=== PATIENT | male | born 1960 | race Caucasian/White ===

== ENCOUNTER → 2017-05-21 18:08 | Outpatient (CLI) | payer MEDICARE ==
[2016-06-29 06:36] VITALS: BMI 22.0
[~2017-05-21 18:08] MED LIST: ASPIRIN EC81 M1 PO; ATRIPLA TABLET1 TAB PO; HYDROCODONE-APA1 TAB PO; MULTIPLE VITAMI1 TA1 PO; TRICOR145 MG PO; VALIUM5 MG PO; ZOLOFT50 MG PO
== END | disposition home or self-care (01) ==
LOC: D.LABREF 18:08
DX: Z13.9 Encounter for screening, unspecified (principal)

== ENCOUNTER 2018-04-08 10:20 | Day surgery (SDC) | payer MEDICARE ==
[~2018-04-08] VITALS: Ht 172.7 cm; Wt 68.2 kg
--- NOTE | ~2018-04-08 | OP ---
PATIENT NAME: DARRELL PANDYA MEDICAL RECORD: [id number] :64 LOCATION:[facility] ADMISSION DATE: SURGEON: JULIO SUTTON DO DATE OF OPERATION: 04/08/2018 PROCEDURE: Colonoscopy with polypectomy. INDICATIONS FOR PROCEDURE: Screening for colorectal cancer and a family history of malignant neoplasm of the gastrointestinal tract. SCOPE: Olympus video pediatric colonoscope. MEDICATIONS: Propofol 350 mg IV per anesthesia. WITHDRAWAL TIME: 14 minutes. ESTIMATED BLOOD LOSS: Minimal. COMPLICATIONS: None. FINDINGS: Informed consent was given. The patient was made comfortable with the above medication. After reaching an adequate level of sedation by slow IV push, the patient was placed on his left side. A digital rectal examination was performed and was normal. The endoscope was then advanced under direct visualization through the rectum to the cecum, confirmed by the appendiceal orifice and ileocecal valve. The endoscope was slowly withdrawn and mucosa was carefully examined. Prep quality was excellent. There was a single polyp located in the ascending colon, which was benign appearing and sessile. It measured approximately 5-6 mm in diameter. It was removed using hot snare in 1 piece and completely retrieved. There was evidence of mild diverticulosis involving the sigmoid colon. Retroflexion was performed in the rectum with a normal appearing rectal wall. The endoscope was then withdrawn from the patient. The patient tolerated the procedure well and there were no complications. IMPRESSION: 1. Single polyp located in the ascending colon as described above. 2. Mild diverticulosis of the sigmoid colon. 3. Otherwise, normal colonoscopy to cecum. PLAN AND RECOMMENDATIONS: 1. Discharge home when recovery parameters are met. 2. Follow up biopsy specimen results. 3. High fiber diet. 4. Continue current medications. 5. Recall colonoscopy in 3-5 years for surveillance of a personal history of polyps. TRANSINT:[id number] Voice Confirmation ID: [id number] DOCUMENT ID: [id number] OPERATIVE REPORT [id number] DARRELL PANDYA JULIO SUTTON DO at 1616 CC: [id number] DICTATION DATE: 04/08/18 1314 ENGINE HEAD REPAIRER: 04/08/18 1330 [facility] 04/08/18 [place] [address]
[2018-04-08 11:34] VITALS: BP 104/78; Ht 172.7 cm; Wt 68.2 kg
== END 2018-04-08 14:20 | disposition home or self-care (01) ==
LOC: D.OPS 10:20
DX: Z12.11 Encounter for screening for malignant neoplasm of colon (principal); D12.2 Benign neoplasm of ascending colon; K57.30 Diverticulosis of large intestine without perforation or abscess without bleeding; Z80.0 Family history of malignant neoplasm of digestive organs; Z01.812 Encounter for preprocedural laboratory examination

== ENCOUNTER → 2018-11-07 10:28 | Outpatient (CLI) | payer MEDICARE ==
[2018-04-08 11:34] VITALS: BMI 22.8
== END | disposition home or self-care (01) ==
LOC: D.US 10:28
PROVIDERS: ATTEND Internal Medicine Nephrology
DX: D64.9 Anemia, unspecified (principal); N40.0 Benign prostatic hyperplasia without lower urinary tract symptoms; Z68.21 Body mass index [BMI] 21.0-21.9, adult; I12.9 Hypertensive chronic kidney disease with stage 1 through stage 4 chronic kidney disease, or unspecified chronic kidney disease; N18.3 Chronic kidney disease, stage 3 (moderate); N25.81 Secondary hyperparathyroidism of renal origin

== ENCOUNTER 2019-08-19 18:47 | Inpatient (IN) | payer MEDICARE ==
[~2019-08-19] VITALS: Ht 172.7 cm; Wt 65.8 kg
[2019-08-19] MEDS ORDERED: BIKTARVY 50-201 EACH PO (18:53)
[2019-08-19 19:33] LABS: BASOPHILS 0.1 % (0-2); EOSINOPHILS 2.9 % (0-7); HEMATOCRIT 43.7 % (42.0-54.0); HEMOGLOBIN 14.6 g/dL (13.5-17.5); IMMATURE GRANULOCYTES 0.1 % (0-5); LYMPHOCYTES 6.7 % (15-50); MCH 29.9 pg (26.0-34.0); MCHC 33.4 g/dL (31.0-37.0); MCV 89.5 fL (80.0-100.0); MEAN PLATELET VOLUME 9.2 fL (7.4-10.4); MONOCYTES 5.3 % (2-11); NEUTROPHILS 84.9 % (40-80); PLATELET COUNT 321 10x3/uL (130-400); RBC 4.88 10x6/uL (4.20-6.10); RDW 14.7 % (11.5-14.5); WBC 15.6 10x3/uL (4.8-10.8)
[2019-08-19 19:41] LABS: CALC OSMOLALITY 287 mosm/kg (275-300); CALCIUM 9.3 mg/dL (8.5-10.1); CARBON DIOXIDE 27.3 mmol/L (21.0-32.0); CHLORIDE - SERUM 105 mmol/L (98-107); CREATININE - SERUM 1.7 mg/dL (0.6-1.3); GLUCOSE 110 mg/dL (74-106); POTASSIUM - SERUM 4.2 mmol/L (3.5-5.1); SODIUM 143 mmol/L (136-145); UREA NITROGEN 18 mg/dL (7-18); eGFR NON AFRICAN AMERICAN 44 mL/min (90-120)
[2019-08-19 19:51] LABS: INR 0.98 (0.85-1.17); PROTIME 12.5 SECONDS (11.6-15.0)
[2019-08-19 20:06] LABS: ALBUMIN 4.1 g/dL (3.4-5.0); ALKALINE PHOSPHATASE 49 U/L (46-116); ALT (SGPT) 25 U/L (10-68); BILIRUBIN - TOTAL 0.48 mg/dL (0.2-1.3); CKMB 2.3 U/L (0.0-3.6); CREATINE KINASE 196 UL (21-232); PRO BNP 316 pg/mL (0-125); PROTEIN - SERUM 7.2 g/dL (6.4-8.2); TROPONIN-I < 0.017 ng/mL (0.000-0.060)
[2019-08-19 22:24] VITALS: BP 144/86; BMI 22.0
--- NOTE | 2019-08-19 22:30 | NUR ---
RECEIVED PT FROM ER. A/O WITH NO SIGNS OF ACUTE DISTRESS. IV TO THE RT FORARM WITH NO REDNESS OR SWELLING NOTED. DENIES NEEDS AT THIS TIME. CONTINUE PLAN OF CARE.
[2019-08-20 01:21] VITALS: BP 122/85
[2019-08-20 02:03] LABS: APPEARANCE CLEAR (CLEAR); BILIRUBIN NEGATIVE (NEGATIVE); COLOR STRAW (YELLOW); GLUCOSE NEGATIVE (NEGATIVE); KETONE NEGATIVE (NEGATIVE); NITRITE NEGATIVE (NEGATIVE); PROTEIN NEGATIVE (NEGATIVE); UROBILINOGEN NORMAL (NORMAL)
[2019-08-20 05:06] VITALS: BP 189/91
[2019-08-20 05:29] LABS: BASOPHILS 0.1 % (0-2); EOSINOPHILS 0.2 % (0-7); HEMATOCRIT 44.6 % (42.0-54.0); HEMOGLOBIN 14.6 g/dL (13.5-17.5); IMMATURE GRANULOCYTES 0.2 % (0-5); LYMPHOCYTES 4.2 % (15-50); MCH 29.4 pg (26.0-34.0); MCHC 32.7 g/dL (31.0-37.0); MCV 89.9 fL (80.0-100.0); MEAN PLATELET VOLUME 9.9 fL (7.4-10.4); MONOCYTES 1.3 % (2-11); PLATELET COUNT 335 10x3/uL (130-400); RBC 4.96 10x6/uL (4.20-6.10); RDW 14.9 % (11.5-14.5); WBC 13.2 10x3/uL (4.8-10.8)
[2019-08-20 06:02] LABS: ANION GAP 16.5 mmol/L (8-16); CALCIUM 9.2 mg/dL (8.5-10.1); CARBON DIOXIDE 24.1 mmol/L (21.0-32.0); CREATININE - SERUM 1.8 mg/dL (0.6-1.3); MAGNESIUM - SERUM 1.8 mg/dL (1.8-2.4); PHOSPHOROUS 2.3 mg/dL (2.5-4.9); POTASSIUM - SERUM 3.6 mmol/L (3.5-5.1)
[2019-08-20 06:37] LABS: APTT 27.4 SECONDS (22.8-39.4); D-DIMER-QUANTITATIVE 0.34 ug/mLFEU (0.20-0.54); INR 0.96 (0.85-1.17); PROTIME 12.7 SECONDS (11.6-15.0)
[2019-08-20 08:20] VITALS: BP 104/78
--- NOTE | 2019-08-20 08:26 | NUR ---
RESTING IN BED, NO DISTRESS NOTED NEEDS SPUTUM COLLECTED, CONT TO MONITOR
[2019-08-20 13:41] VITALS: BP 147/61
[2019-08-20 13:48] VITALS: Ht 172.7 cm; Wt 65.8 kg
[2019-08-20 17:14] VITALS: BP 145/71
--- NOTE | 2019-08-20 19:27 | NUR ---
NO DISTRESS NOTED TODAY, ABT INFUSING
[2019-08-20 19:30] VITALS: BP 110/78
[2019-08-21 00:30] VITALS: BP 108/72
--- NOTE | 2019-08-21 03:06 | NUR ---
I have reviewed this patient and I concur with the Shift Assessment completed by the Licensed Practical Nurse today this shift.
[2019-08-21 04:49] LABS: BASOPHILS 0.1 % (0-2); EOSINOPHILS 0.9 % (0-7); HEMATOCRIT 42.9 % (42.0-54.0); HEMOGLOBIN 14.1 g/dL (13.5-17.5); IMMATURE GRANULOCYTES 0.4 % (0-5); LYMPHOCYTES 10.4 % (15-50); MCH 29.7 pg (26.0-34.0); MCHC 32.9 g/dL (31.0-37.0); MCV 90.3 fL (80.0-100.0); MEAN PLATELET VOLUME 9.5 fL (7.4-10.4); MONOCYTES 6.7 % (2-11); NEUTROPHILS 81.5 % (40-80); PLATELET COUNT 339 10x3/uL (130-400); RBC 4.75 10x6/uL (4.20-6.10)
[2019-08-21 05:00] VITALS: BP 110/67
[2019-08-21 05:17] LABS: ANION GAP 12.5 mmol/L (8-16); CALCIUM 8.9 mg/dL (8.5-10.1); CARBON DIOXIDE 27.4 mmol/L (21.0-32.0); CREATININE - SERUM 1.8 mg/dL (0.6-1.3); MAGNESIUM - SERUM 2.2 mg/dL (1.8-2.4); POTASSIUM - SERUM 3.9 mmol/L (3.5-5.1)
[2019-08-21 05:20] LABS: PHOSPHOROUS 3.2 mg/dL (2.5-4.9)
--- NOTE | 2019-08-21 07:10 | NUR ---
PT RESTING IN BED. NO SIGNS OF DISTRESS. IV TO RIGHT WRIST PATENT NO REDNESS OR TENDERNESS. DENIES ANY FURTHER NEED AT THIS TIME. CALL LIGHT IN REACH. BED LOW POSITION. NO FAMILY AT BEDSIDE AT THIS TIME.
[2019-08-21 09:21] VITALS: BP 126/80
--- NOTE | 2019-08-21 12:31 | NUR ---
I have reviewed this patient and I concur with the Shift Assessment completed by the Licensed Practical Nurse today this shift.
[2019-08-21 12:54] VITALS: BP 111/73
--- NOTE | 2019-08-21 15:52 | MORECARE ---
CASE MANAGEMENT DISCHARGE SUMMARY PATIENT: DARRELL PANDYA UNIT: [id number] ADM DATE: 08/19/19 AGE: 58 : 64 SEX: M ROOM/BED: D.2229 AUTHOR: MARY TELLES PHYSICIAN: REFERRING PHYSICIAN: JAMSHID GARRISON MD DATE OF SERVICE: 08/21/19 Discharge Plan Patient Name: DARRELL PANDYA [facility] [facility] 1960 Planned Disposition: Home Anticipated Discharge Date: Discharge Date: Expected LOS: Initial Reviewer: [email or web address] Initial Review Date: 08/21/2019 Generated: 08/21/19 4:51 pm Patient Name: DARRELL PANDYA Page [phone] at 1552 All edits/amendments must be made on the electronic document DICTATION DATE: 08/21/191550 CEMENT CUTTER: JEAN 08/21/19 155 RPT#: [id number] DC DATE: STATUS: ADM IN [facility] [address] [place] [address] END OF REPORT
[2019-08-21 17:28] VITALS: BP 115/83
[2019-08-21 19:30] VITALS: BP 134/66
[2019-08-22 00:30] VITALS: BP 112/68
--- NOTE | 2019-08-22 00:30 | NUR ---
ASSESSED AT THE BEGINNING OF THE SHIFT. PT IS ALERT AND ORIENTEDD. ABLE TO VERBALIZE NEEDS. HE IS WEARING HIS SCDS. SOMEONE BROUGHT BIKTARVY. HIS HOME MED AND IT HAS BEEN TAKEN TO THE PHARM, TO PUT A STICKER OF HIS NAME LATER HE REQUESTED PAIN MEDS BEFORE HE COULD SLEEP. AT THIS TIME HE IS ASLEEP WITH NO DISTRESS
[2019-08-22 05:19] VITALS: BP 118/72
[2019-08-22 06:37] LABS: BASOPHILS 0.1 % (0-2); EOSINOPHILS 0.1 % (0-7); HEMATOCRIT 42.1 % (42.0-54.0); HEMOGLOBIN 13.8 g/dL (13.5-17.5); IMMATURE GRANULOCYTES 0.3 % (0-5); LYMPHOCYTES 5.4 % (15-50); MCH 29.2 pg (26.0-34.0); MCHC 32.8 g/dL (31.0-37.0); MONOCYTES 4.3 % (2-11); NEUTROPHILS 89.8 % (40-80); PLATELET COUNT 294 10x3/uL (130-400); RBC 4.73 10x6/uL (4.20-6.10); RDW 14.9 % (11.5-14.5); WBC 19.2 10x3/uL (4.8-10.8)
[2019-08-22 06:45] LABS: ANION GAP 13.5 mmol/L (8-16); CALCIUM 8.8 mg/dL (8.5-10.1); CARBON DIOXIDE 25.4 mmol/L (21.0-32.0); CREATININE - SERUM 1.6 mg/dL (0.6-1.3); MAGNESIUM - SERUM 2.1 mg/dL (1.8-2.4); PHOSPHOROUS 3.9 mg/dL (2.5-4.9); POTASSIUM - SERUM 3.9 mmol/L (3.5-5.1)
--- NOTE | 2019-08-22 07:37 | NUR ---
PT IS RESTING IN BED WITH EYES OPEN. RESPIRATIONS ARE EVEN AND UNLABORED. PT DENIES PRESENCE OF DYSPNEA/SOB. EXPIRATORY WHEEZE HEARD RML RLL. INCENTIVE SPIROMETER GIVEN TO PT. PT DEMONSTRATES PROPER TECHNIQUE AND UNDERSTANDING. PT DENIES FURTHER QUESTIONS. SCDS ARE ON. PT DENIES PRESENCEO F PAIN/N/V PT REPORTS LAST BM ON 08/21/19 DESCRIBED "NORMAL" PER PT. BED IS IN THE LOWEST POSITION. CALL LIGHT AND BEDSIDE TABLE ARE WITHIN REACH. SIDE RAILS X 2. PT DENIES FURTHER NEEDS. WILL CONT TO MONITOR.
--- NOTE | 2019-08-22 08:03 | MORECARE ---
CASE MANAGEMENT DISCHARGE SUMMARY PATIENT: DARRELL PANDYA JABARI UNIT: [id number] ADM DATE: 08/19/19 AGE: 58 : 64 SEX: M ROOM/BED: D.2229 AUTHOR: MARY TELLES PHYSICIAN: REFERRING PHYSICIAN: JAMSHID GARRISON MD DATE OF SERVICE: 08/22/19 Discharge Plan Patient Name: DARRELL PANDYA [facility] [facility] 1960 Planned Disposition: Home Anticipated Discharge Date: Discharge Date: Expected LOS: Initial Reviewer: [email or web address] Initial Review Date: 08/21/2019 Generated: 08/22/19 9:03 am DCPIA - Discharge Planning Initial Assessment Updated by [email or web address]: Cristin Fish on 08/22/19 7:57 am * Is the patient Alert and Oriented? Yes * How many steps to enter\exit or inside your home? 1/0 * PCP Dr. Rain * Pharmacy [facility] * Preadmission Environment Home with Family * ADLs Independent * Equipment None * List name and contact numbers for known caregivers / representatives who currently or will assist patient after discharge: Thanh Hinkle - [phone] * Verbal permission to speak to the caregivers and representatives has been obtained from the patient. Yes * Community resources currently utilized None * Additional services required to return to the preadmission environment? No * Can the patient safely return to the preadmission environment? Yes * Has this patient been hospitalized within the prior 30 days at any hospital? No Last DP export: 08/21/19 2:52 Patient Name: DARRELL PANDYA Page [phone] at 0803 All edits/amendments must be made on the electronic document DICTATION DATE: 08/22/19 08 METAL MILLING MACHINE OPERATOR: JEAN 08/22/19802 RPT#: [id number] DC DATE: STATUS: ADM IN [facility] [address] [place] [address] END OF REPORT
--- NOTE | 2019-08-22 08:18 | MORECARE ---
CASE MANAGEMENT DISCHARGE SUMMARY PATIENT: DARRELL PANDYA UNIT: [id number] ADM DATE: 08/19/19 AGE: 58 : 64 SEX: M ROOM/BED: D.2229 AUTHOR: KOKI,DOC PHYSICIAN: REFERRING PHYSICIAN: JAMSHID GARRISON MD DATE OF SERVICE: 08/22/19 Discharge Plan Patient Name: DARRELL PANDYA Facility: [facility]:[place] : 1960 Planned Disposition: Home Anticipated Discharge Date: Discharge Date: Expected LOS: Initial Reviewer: [email or web address] Initial Review Date: 08/21/2019 Generated: 08/22/19 9:18 am Comments DCP- Discharge Planning Updated by [email or web address]: Cristin Fish on 08/22/19 7:[address] Patient Name: DARRELL PANDYA Admission Status: ER Accout number: [id number] Admission Date: 08-19-2019 : 1960 Admission Diagnosis: Attending: JAMSHID ROCA Current LOS: 3 Anticipated DC Date: Planned Disposition: Home Primary Insurance: [facility] MEDICARE SOLUTIONS Discharge Planning Comments: CM met with patient to complete initial dc planning assessment. CM educated patient on the CM role and verbal consent given by patient to complete assessment. Patient lives at home with Thanh Hinkle. At discharge patient plans to return and feels this is a safe discharge. CM discussed availability of home health, rehab services, and medical equipment. Patient states he believes Dr. Osorio will order a nebulizer for him. He lives at [facility] for [facility]. CM will continue to follow and will assist as needed with dc plans/needs. Inseminator: Cristin Fish DCPIA - Discharge Planning Initial Assessment Updated by [email or web address]: Cristin Fish on 08/22/19 7:57 am * Is the patient Alert and Oriented? Yes * How many steps to enter\exit or inside your home? 1/0 * PCP Dr. Rain * Pharmacy [facility] * Preadmission Environment Home with Family * ADLs Independent * Equipment None * List name and contact numbers for known caregivers / representatives who currently or will assist patient after discharge: Thanh Hinkle - [phone] * Verbal permission to speak to the caregivers and representatives has been obtained from the patient. Yes * Community resources currently utilized None * Additional services required to return to the preadmission environment? No * Can the patient safely return to the preadmission environment? Yes * Has this patient been hospitalized within the prior 30 days at any hospital? No Last DP export: 08/22/19 7:03 Patient Name: DARRELL PANDYA Page [phone] at 0818 All edits/amendments must be made on the electronic document DICTATION DATE: 08/22/19817 MANAGER MASSAGE DEPARTMENT: JEAN 08/22/19817 RPT#: [id number] DC DATE: STATUS: ADM IN [facility] [address] [place] [address] END OF REPORT
[2019-08-22 08:50] VITALS: BP 115/88
[2019-08-22 12:28] VITALS: BP 111/69
--- NOTE | 2019-08-22 13:27 | NUR ---
NUTRITION F/U PT TOLERATING REG DIET. 100% INTAKE BREAKFAST THIS AM. WILL CONTINUE TO PROVIDE DIET, HONOR FOOD PREFERENCES. RD FOLLOWING
--- NOTE | 2019-08-22 13:31 | NUR ---
PT REPORTS PAIN TO LEFT "URINARY TRACT" AND PT DESCRIBES PAIN A SHARP THROBBING INTERMITTENT. PT DENIES DYSURIA DURING VOIDING AND STAES THAT PAIN COMES AND GOES WITH MOVEMENT. PT DENIES NEEDS. BED IS IN THE LOWEST POSITION. CALL LIGHT AND BEDSIDE TABLE ARE WITHINR EACH. SIDE RAILS X 2. WILL CONT TO MONITOR.
--- NOTE | 2019-08-22 16:15 | MORECARE ---
CASE MANAGEMENT DISCHARGE SUMMARY PATIENT: DARRELL PANDYA UNIT: [id number] ADM DATE: 08/19/19 AGE: 58 : 64 SEX: M ROOM/BED: D.2229 AUTHOR: KOKI,DOC PHYSICIAN: REFERRING PHYSICIAN: JAMSHID GARRISON MD DATE OF SERVICE: 08/22/19 Discharge Plan Patient Name: DARRELL PANDYA Facility: [facility]:[place] : 1960 Planned Disposition: Home Anticipated Discharge Date: Discharge Date: Expected LOS: Initial Reviewer: [email or web address] Initial Review Date: 08/21/2019 Generated: 08/22/19 5:14 pm Comments DCP- Discharge Planning Updated by [email or web address]: Cristin Fish on 08/22/19 7:[address] Patient Name: DARRELL PANDYA Admission Status: ER Accout number: [id number] Admission Date: 08-19-2019 : 1960 Admission Diagnosis: Attending: JAMSHID ROCA Current LOS: 3 Anticipated DC Date: Planned Disposition: Home Primary Insurance: [facility] MEDICARE SOLUTIONS Discharge Planning Comments: CM met with patient to complete initial dc planning assessment. CM educated patient on the CM role and verbal consent given by patient to complete assessment. Patient lives at home with Thanh Hinkle. At discharge patient plans to return and feels this is a safe discharge. CM discussed availability of home health, rehab services, and medical equipment. Patient states he believes Dr. Osorio will order a nebulizer for him. He lives at [facility] for [facility]. CM will continue to follow and will assist as needed with dc plans/needs. Director Of Optimization: Cristin Fish DCPIA - Discharge Planning Initial Assessment Updated by [email or web address]: Cristin Fish on 08/22/19 7:57 am * Is the patient Alert and Oriented? Yes * How many steps to enter\exit or inside your home? 1/0 * PCP Dr. Rain * Pharmacy [facility] * Preadmission Environment Home with Family * ADLs Independent * Equipment None * List name and contact numbers for known caregivers / representatives who currently or will assist patient after discharge: Thanh Hinkle - [phone] * Verbal permission to speak to the caregivers and representatives has been obtained from the patient. Yes * Community resources currently utilized None * Additional services required to return to the preadmission environment? No * Can the patient safely return to the preadmission environment? Yes * Has this patient been hospitalized within the prior 30 days at any hospital? No External Providers External Provider: [facility] Next Contact Date: Service Request Date: Service Type: Resolution: Reviewer: Comments: Coverage Notice Reviewer: [email or web address] Donavan Fish Notice Issued Date-Time: 08/22/2019 8:18 Notice Type: Patient Choice Letter Notice Delivered To: Patient Relationship to Patient: Self Solar Energy Systems Designer Name: Delivery Method: HAND - Hand Delivered Lourdes Days: Prior Verbal Notification: Recipient Understood Notice: Yes Recipient Signature: Yes Med Rec Note Co-signed by Attending: Coverage Notice Comment: [facility] DP export: 08/22/19 7:18 Patient Name: DARRELL PNADYA Page [phone] at 1615 All edits/amendments must be made on the electronic document DICTATION DATE: 08/22/19 1615 MAT WORKER: JEAN 08/22/19 1615 RPT#: [id number] DC DATE: STATUS: ADM IN [facility] [address] [place] [address] END OF REPORT
--- NOTE | 2019-08-22 16:34 | MORECARE ---
CASE MANAGEMENT DISCHARGE SUMMARY PATIENT: DARRELL PANDYA UNIT: [id number] ADM DATE: 08/19/19 AGE: 58 : 64 SEX: M ROOM/BED: D.2229 AUTHOR: KOKI,DOC PHYSICIAN: REFERRING PHYSICIAN: JAMSHID GARRISON MD DATE OF SERVICE: 08/22/19 Discharge Plan Patient Name: DARRELL PANDYA Facility: [facility]:[place] : 1960 Planned Disposition: Home Anticipated Discharge Date: Discharge Date: Expected LOS: Initial Reviewer: [id number] Initial Review Date: 08/21/2019 Generated: 08/22/19 5:34 pm Comments DCP- Discharge Planning Updated by [email or web address]: Cristin Fish on 08/22/19 3:[address] OSORIO STATES PATIENT COULD POSSIBLY GO HOME THIS WEEKEND. HE WILL NEED A NEBULIZER WITH DUONEB 4 TIMES A DAY. I CALLED [facility] AND ORDER AND CLINICAL FAXED, SPOKE WITH DILIA. CM WILL CONTINUE TO FOLLOW AND ASSIST WITH DISCHARGE PLANNING/NEEDS. DCP- Discharge Planning Updated by [email or web address]: Cristin Fish on 08/22/19 7:[address] Patient Name: DARRELL PANDYA Admission Status: ER Accout number: [id number] Admission Date: 08-19-2019 : 1960 Admission Diagnosis: Attending: JAMSHID ROCA Current LOS: 3 Anticipated DC Date: Planned Disposition: Home Primary Insurance: [facility] MEDICARE SOLUTIONS Discharge Planning Comments: CM met with patient to complete initial dc planning assessment. CM educated patient on the CM role and verbal consent given by patient to complete assessment. Patient lives at home with Thanh Hinkle. At discharge patient plans to return and feels this is a safe discharge. CM discussed availability of home health, rehab services, and medical equipment. Patient states he believes Dr. Osorio will order a nebulizer for him. He lives at [facility] for [facility]. CM will continue to follow and will assist as needed with dc plans/needs. Chemical Compounder: Cristin Fish DCPIA - Discharge Planning Initial Assessment Updated by [email or web address]: Cristin Fish on 08/22/19 7:57 am * Is the patient Alert and Oriented? Yes * How many steps to enter\exit or inside your home? 1/0 * PCP Dr. Rain * Pharmacy [facility] 7N * Preadmission Environment Home with Family * ADLs Independent * Equipment None * List name and contact numbers for known caregivers / representatives who currently or will assist patient after discharge: Thanh Hinkle - [phone] * Verbal permission to speak to the caregivers and representatives has been obtained from the patient. Yes * Community resources currently utilized None * Additional services required to return to the preadmission environment? No * Can the patient safely return to the preadmission environment? Yes * Has this patient been hospitalized within the prior 30 days at any hospital? No Coverage Notice Reviewer: [id number] Donavan Fish Notice Issued Date-Time: 08/22/2019 8:18 Notice Type: Patient Choice Letter Notice Delivered To: Patient Relationship to Patient: Self Assistant Mechanic Name: Delivery Method: HAND - Hand Delivered Lourdes Days: Prior Verbal Notification: Recipient Understood Notice: Yes Recipient Signature: Yes Med Rec Note Co-signed by Attending: Coverage Notice Comment: [facility] for [facility] DP export: 08/22/19 3:15 Patient Name: DARRELL PANDYA Page [phone] at 1634 All edits/amendments must be made on the electronic document DICTATION DATE: 08/22/19 163 CARDIOTHORACIC SURGEON: JEAN 08/22/19 163 RPT#: [id number] DC DATE: STATUS: ADM IN [facility] [address] [place] [address] END OF REPORT
[2019-08-22 16:58] VITALS: BP 109/72
--- NOTE | 2019-08-22 17:06 | MORECARE ---
CASE MANAGEMENT DISCHARGE SUMMARY PATIENT: DARRELL PANDYA UNIT: [id number] ADM DATE: 08/19/19 AGE: 58 : 64 SEX: M ROOM/BED: D.2229 AUTHOR: KOKI,DOC PHYSICIAN: REFERRING PHYSICIAN: JAMSHID GARRISON MD DATE OF SERVICE: 08/22/19 Discharge Plan Patient Name: DARRELL PANDYA Facility: [facility]:[place] : 1960 Planned Disposition: Home Anticipated Discharge Date: Discharge Date: Expected LOS: Initial Reviewer: [email or web address] Initial Review Date: 08/21/2019 Generated: 08/22/19 6:06 pm Comments DCP- Discharge Planning Updated by [email or web address]: Cristin Fish on 08/22/19 4:[address] PATIENT TO CALL [facility] AT [phone] IF DISCHARGED OVER THE WEEKEND AND THEY WILL DELIVER HIS NEBULIZER AND DUO NEB TO HIS HOME. I GAVE THE PATIENT THAT WRITTEN INFORMATION WITH THE TELEPHONE NUMBER, HE VOICES UNDERSTANDING. DCP- Discharge Planning Updated by [email or web address]: Cristin Fish on 08/22/19 3:[address] OSORIO STATES PATIENT COULD POSSIBLY GO HOME THIS WEEKEND. HE WILL NEED A NEBULIZER WITH DUONEB 4 TIMES A DAY. I CALLED [facility] AND ORDER AND CLINICAL FAXED, SPOKE WITH DILIA. CM WILL CONTINUE TO FOLLOW AND ASSIST WITH DISCHARGE PLANNING/NEEDS. DCP- Discharge Planning Updated by [email or web address]: Cristin Polina on 08/22/19 7:[address] Patient Name: DARRELL PANDYA Admission Status: ER Accout number: [id number] Admission Date: 08-19-2019 : 1960 Admission Diagnosis: Attending: JAMSHID ROCA Current LOS: 3 Anticipated DC Date: Planned Disposition: Home Primary Insurance: [facility] MEDICARE SOLUTIONS Discharge Planning Comments: CM met with patient to complete initial dc planning assessment. CM educated patient on the CM role and verbal consent given by patient to complete assessment. Patient lives at home with Thanh Hinkle. At discharge patient plans to return and feels this is a safe discharge. CM discussed availability of home health, rehab services, and medical equipment. Patient states he believes Dr. Osorio will order a nebulizer for him. He lives at [facility] [employer]. CM will continue to follow and will assist as needed with dc plans/needs. Certification Technician: Cristin Fish DCPIA - Discharge Planning Initial Assessment Updated by [email or web address]: Cristin Fish on 08/22/19 7:57 am * Is the patient Alert and Oriented? Yes * How many steps to enter\exit or inside your home? 1/0 * PCP Dr. Rain [facility] * Preadmission Environment Home with Family * ADLs Independent * Equipment None * List name and contact numbers for known caregivers / representatives who currently or will assist patient after discharge: Thanh Manan - [phone] * Verbal permission to speak to the caregivers and representatives has been obtained from the patient. Yes * Community resources currently utilized None * Additional services required to return to the preadmission environment? No * Can the patient safely return to the preadmission environment? Yes * Has this patient been hospitalized within the prior 30 days at any hospital? No Coverage Notice Reviewer: [email or web address] - Cristin Fish Notice Issued Date-Time: 08/22/2019 8:18 Notice Type: Patient Choice Letter Notice Delivered To: Patient Relationship to Patient: Self Enterprise Manager Name: Delivery Method: HAND - Hand Delivered Lourdes Days: Prior Verbal Notification: Recipient Understood Notice: Yes Recipient Signature: Yes Med Rec Note Co-signed by Attending: Coverage Notice Comment: [facility] [employer] [facility] DP export: 08/22/19 3:35 Patient Name: DARRELL PANDYA Page [phone] at 1706 All edits/amendments must be made on the electronic document DICTATION DATE: 08/22/191705 STUDENT ASSISTANT: JEAN 08/22/191705 RPT#: [id number] DC DATE: STATUS: ADM IN [facility] [address] [place] [address] END OF REPORT
[2019-08-22 18:10] LABS: APPEARANCE CLEAR (CLEAR); BILIRUBIN NEGATIVE (NEGATIVE); COLOR YELLOW (YELLOW); GLUCOSE NEGATIVE (NEGATIVE); KETONE NEGATIVE (NEGATIVE); NITRITE NEGATIVE (NEGATIVE); PROTEIN NEGATIVE (NEGATIVE); UROBILINOGEN NORMAL (NORMAL)
[2019-08-22 19:30] VITALS: BP 116/74
[2019-08-23 00:30] VITALS: BP 110/68
[2019-08-23 04:57] VITALS: BP 108/71
[2019-08-23 06:55] LABS: CARBON DIOXIDE 27.6 mmol/L (21.0-32.0); CREATININE - SERUM 1.6 mg/dL (0.6-1.3); MAGNESIUM - SERUM 1.9 mg/dL (1.8-2.4); PHOSPHOROUS 4.1 mg/dL (2.5-4.9)
[2019-08-23 06:58] LABS: POTASSIUM - SERUM 4.6 mmol/L (3.5-5.1)
[2019-08-23 07:22] LABS: BASOPHILS 0.1 % (0-2); EOSINOPHILS 0 % (0-7); HEMATOCRIT 40.5 % (42.0-54.0); HEMOGLOBIN 13.1 g/dL (13.5-17.5); IMMATURE GRANULOCYTES 0.3 % (0-5); MCH 29.2 pg (26.0-34.0); MCHC 32.3 g/dL (31.0-37.0); MCV 90.4 fL (80.0-100.0); MEAN PLATELET VOLUME 9.8 fL (7.4-10.4); MONOCYTES 3.9 % (2-11); NEUTROPHILS 88.7 % (40-80); PLATELET COUNT 385 10x3/uL (130-400); RBC 4.48 10x6/uL (4.20-6.10); WBC 15.3 10x3/uL (4.8-10.8)
[2019-08-23 09:12] VITALS: BP 105/74
--- NOTE | 2019-08-23 09:19 | NUR ---
RESTING IN BED, NO DISTRESS NOTED, IV INFUSING, CONT TO MONITOR RESP STATUS
[2019-08-23 13:04] VITALS: BP 116/77
[2019-08-23 16:36] VITALS: BP 111/76
--- NOTE | 2019-08-23 19:30 | NUR ---
SITTING UP IN BED RECEIVING UD. ALERT AND ORIENTED X4. NO DISTRESS. RESP NONLABORED. NONPROD COUGH. SCDS IN USE. DENIES PAIN. AMBULATORY. SALINE LOCK NOTED TO LT FOREARM. CL IN REACH.
[2019-08-23 20:00] VITALS: BP 108/74
[2019-08-24] VITALS: BP 104/68
--- NOTE | 2019-08-24 00:31 | NUR ---
HAS RESTED WELL SO FAR. LYING IN BED WITH EYES CLOSED. NO DISTRESS. CL IN REACH.
[2019-08-24 04:00] VITALS: BP 104/72
[2019-08-24 05:47] LABS: BASOPHILS 0 % (0-2); EOSINOPHILS 0.2 % (0-7); HEMATOCRIT 42.7 % (42.0-54.0); HEMOGLOBIN 13.9 g/dL (13.5-17.5); IMMATURE GRANULOCYTES 0.9 % (0-5); LYMPHOCYTES 16.7 % (15-50); MCH 29.6 pg (26.0-34.0); MCHC 32.6 g/dL (31.0-37.0); MCV 90.9 fL (80.0-100.0); MEAN PLATELET VOLUME 9.7 fL (7.4-10.4); MONOCYTES 6.3 % (2-11); NEUTROPHILS 75.9 % (40-80); PLATELET COUNT 375 10x3/uL (130-400); RDW 14.9 % (11.5-14.5); WBC 12.4 10x3/uL (4.8-10.8)
[2019-08-24 06:35] LABS: ANION GAP 13.2 mmol/L (8-16); CALCIUM 9.2 mg/dL (8.5-10.1); CARBON DIOXIDE 27.7 mmol/L (21.0-32.0); CREATININE - SERUM 1.6 mg/dL (0.6-1.3); MAGNESIUM - SERUM 2.1 mg/dL (1.8-2.4); PHOSPHOROUS 3.8 mg/dL (2.5-4.9)
[2019-08-24 06:38] LABS: POTASSIUM - SERUM 3.9 mmol/L (3.5-5.1)
[2019-08-24 08:08] LABS: IMMUNOGLOBULIN E 54 IU/mL (6-495)
--- NOTE | 2019-08-24 08:30 | NUR ---
RESTING IN BED, NO DISTRESS NOTED, ANXIOUS TO DC HOME TODAY, SL IN PLACE
[2019-08-24 08:36] VITALS: BP 113/70
[2019-08-24] MEDS ORDERED: VIBRAMYCIN 100100 MG PO (11:12)
[2019-08-24] MEDS ORDERED: OMNICEF300 MG PO (11:12)
[2019-08-24] MEDS ORDERED: IPRAT-ALBUT 0.5-3 ML UPD (11:13)
[2019-08-24] MEDS ORDERED: MUCINEX DM ER1 EAC1 PO (11:13)
[2019-08-24] MEDS ORDERED: SINGULAIR10 MG PO (11:13)
[2019-08-24] MEDS ORDERED: TESSALON PERLE100 MG PO (11:13)
[2019-08-24] MEDS ORDERED: FLORAJEN3 CAPS460 MG PO (11:14)
[2019-08-24] MEDS ORDERED: PREDNISONE10 MG PO (11:15)
[2019-08-24] MEDS ORDERED: Nystatin Oral Susp [ PO (11:15)
[2019-08-24] MEDS ORDERED: Saline Mist NASAL SP NASAL (11:15)
[2019-08-24] MEDS ORDERED: SYMBICORT 16010.2 GM INH (11:15)
[2019-08-24 11:58] VITALS: BP 124/92
--- NOTE | 2019-08-24 11:58 | MORECARE ---
CASE MANAGEMENT DISCHARGE SUMMARY PATIENT: DARRELL PANDYA UNIT: [id number] ADM DATE: 08/19/19 AGE: 58 : 64 SEX: M ROOM/BED: D.2229 AUTHOR: KOKI,DOC PHYSICIAN: REFERRING PHYSICIAN: JAMSHID GARRISON MD DATE OF SERVICE: 08/24/19 Discharge Plan Patient Name: DARRELL PANDYA Facility: [facility]:[place] : 1960 Planned Disposition: Home Anticipated Discharge Date: Discharge Date: Expected LOS: Initial Reviewer: [id number] Initial Review Date: 08/21/2019 Generated: 08/24/19 12:57 pm Comments DCP- Discharge Planning Updated by [id number]: Francoise Jones on 08/24/19 10:[address] Patient Name: DARRELL PANDYA Encounter No: [id number] : 1960 Primary Insurance: [facility] [employer] Anticipated DC Date: Planned Disposition: Home External Planned Provider: : DCP follow-up note: Patient and family in agreement with discharge plan. No changes to plan. [employer] HAS ALREADY DELIVERED THE PATIENT'S NEB. IMM WAS SIGNED AND COPY GIVEN. Case management will follow and assist as needed. Francoise Jones DCP- Discharge Planning Updated by [email or web address]: Cristin Fish on 08/22/19 4:[address] PATIENT TO CALL [facility] AT [phone] IF DISCHARGED OVER THE WEEKEND AND THEY WILL DELIVER HIS NEBULIZER AND DUO NEB TO HIS HOME. I GAVE THE PATIENT THAT WRITTEN INFORMATION WITH THE TELEPHONE NUMBER, HE VOICES UNDERSTANDING. DCP- Discharge Planning Updated by [email or web address]: Cristin Fish on 08/22/19 3:[address] OSORIO STATES PATIENT COULD POSSIBLY GO HOME THIS WEEKEND. HE WILL NEED A NEBULIZER WITH DUONEB 4 TIMES A DAY. I CALLED [facility] AND ORDER AND CLINICAL FAXED, SPOKE WITH DILIA. CM WILL CONTINUE TO FOLLOW AND ASSIST WITH DISCHARGE PLANNING/NEEDS. DCP- Discharge Planning Updated by [email or web address]: Cristin Fish on 08/22/19 7:[address] Patient Name: DARRELL PANDYA Admission Status: ER Accout number: [id number] Admission Date: 08-19-2019 : 1960 Admission Diagnosis: Attending: JAMSHID ROCA Current LOS: 3 Anticipated DC Date: Planned Disposition: Home Primary Insurance: [facility] [employer] Discharge Planning Comments: CM met with patient to complete initial dc planning assessment. CM educated patient on the CM role and verbal consent given by patient to complete assessment. Patient lives at home with Thanh Hinkle. At discharge patient plans to return and feels this is a safe discharge. CM discussed availability of home health, rehab services, and medical equipment. Patient states he believes Dr. Osorio will order a nebulizer for him. He lives at [facility]. CM will continue to follow and will assist as needed with dc plans/needs. Bird Cage Assembler: Cristin Fish DCPIA - Discharge Planning Initial Assessment Updated by [email or web address]: Cristin Fish on 08/22/19 7:57 am * Is the patient Alert and Oriented? Yes * How many steps to enter\exit or inside your home? 1/0 * PCP Dr. Rain * Pharmacy [facility] * Preadmission Environment Home with Family * ADLs Independent * Equipment None * List name and contact numbers for known caregivers / representatives who currently or will assist patient after discharge: Thanh Hinkle - [phone] * Verbal permission to speak to the caregivers and representatives has been obtained from the patient. Yes * Community resources currently utilized None * Additional services required to return to the preadmission environment? No * Can the patient safely return to the preadmission environment? Yes * Has this patient been hospitalized within the prior 30 days at any hospital? No Coverage Notice Reviewer: [id number] - Cristin Fish Notice Issued Date-Time: 08/22/2019 8:18 Notice Type: Patient Choice Letter Notice Delivered To: Patient Relationship to Patient: Self Soft Sugar Operator Head Name: Delivery Method: HAND - Hand Delivered [place] Days: Prior Verbal Notification: Recipient Understood Notice: Yes Recipient Signature: Yes Med Rec Note Co-signed by Attending: Coverage Notice Comment: [facility] medical insurance coder: [id number] Donavan Jones Notice Issued Date-Time: 08/24/2019 11:50 Notice Type: IM Discharge Notice Notice Delivered To: Patient Relationship to Patient: Soft Sugar Operator Head Name: Delivery Method: HAND - Hand Delivered [place] Days: Prior Verbal Notification: Recipient Understood Notice: Yes Recipient Signature: Yes Med Rec Note Co-signed by Attending: Coverage Notice Comment: Last DP export: 08/22/19 4:06 Patient Name: DARRELL PANDYA Page [id number] at 1158 All edits/amendments must be made on the electronic document DICTATION DATE: 08/24/191156 PATIENT NAVIGATOR: JEAN 08/24/191156 RPT#: [id number] DC DATE: STATUS: ADM IN [facility] [address] [place] [address] END OF REPORT
--- NOTE | 2019-08-24 12:03 | NUR ---
[facility] CALLED TO [facility]. PT REQUESTED FLU SHOT. CALLED [facility], ORDER OBTAINED.
--- NOTE | 2019-08-24 14:29 | NUR ---
1240 REVIEWED D/C INSTRUCTIONS WITH PT, VOICED NO CONCERNS, DC IV, TIP INTACT,
--- NOTE | 2019-08-24 14:30 | NUR ---
1300 TAKEN FROM HOSPITAL PER W/C
== END 2019-08-24 13:00 | disposition home or self-care (01) | DRG 189 ==
LOC: D.ER 18:47 → D.MS 21:03 → D.SDCHOLD 08-22 13:53 → D.MS 08-22 13:53
PROVIDERS: Emergency Medicine; Family Medicine; Internal Medicine Pulmonary Disease; ADMIT Family Medicine; ATTEND Family Medicine
DX: J96.01 Acute respiratory failure with hypoxia (principal); J45.901 Unspecified asthma with (acute) exacerbation; B20 Human immunodeficiency virus [HIV] disease; B37.0 Candidal stomatitis; D72.829 Elevated white blood cell count, unspecified; E78.5 Hyperlipidemia, unspecified; F41.8 Other specified anxiety disorders; M19.90 Unspecified osteoarthritis, unspecified site; M54.9 Dorsalgia, unspecified; N18.3 Chronic kidney disease, stage 3 (moderate); F12.90 Cannabis use, unspecified, uncomplicated; L30.9 Dermatitis, unspecified; J20.9 Acute bronchitis, unspecified; E83.39 Other disorders of phosphorus metabolism; K21.9 Gastro-esophageal reflux disease without esophagitis